=== PATIENT | female | born 1970 | race Caucasian/White ===

== ENCOUNTER 2018-04-19 09:14 | Emergency (ER) | payer OTHER ==
[2018-04-19] MEDS ORDERED: Sodium Chloride 0.9% 1,000 ML ONE (09:49)
[2018-04-19] MEDS ORDERED: Morphine 4 MG/ML Carpuject ONE (09:50)
[2018-04-19] MEDS ORDERED: Ondansetron HCl/PF 4 MG/2 ML Vial ONE (09:50)
[2018-04-19 09:57] LABS: #Basophils 0.1 thou/uL (0.0-0.2); #Eosinphils 0.2 thou/uL (0.0-0.7); #Lymphocytes 2.1 thou/uL (1.20-3.40); #Monocytes 1.1 thou/uL (0.11-0.59); %Basophils 0.8 % (0.0-1.0); %Eosinophils 1.7 % (0.0-10.0); %Lymphocytes 16.7 % (21.0-51.0); %Monocytes 8.8 % (0.0-10.0); Hemoglobin 13.6 g/dL (12.0-16.0); Mean Corpuscular HGB CONC 33.5 g/dL (32.0-36.0); Mean Corpuscular Hemoglobin 30.9 pg (27.0-31.0); Mean Corpuscular Volume 92.2 fl (81.0-99.0); Mean Platelet Volume 10.6 fL (7.4-10.4); Platelet Count 259 thou/uL (130-400); Red Blood Cell (RBC) Count 4.39 mill/uL (4.20-5.40); White Blood Cell (WBC) Count 12.5 thou/uL (4.8-10.8)
[2018-04-19 10:12] LABS: ALT (SGPT) 12 U/L (8-55); AST (SGOT) 14 U/L (5-34); Alkaline Phosphatase 55 U/L (40-150); Anion Gap 14 mmol/L (10-20); BUN (Urea Nitrogen) 9 mg/dL (7.0-18.7); Bilirubin, Total 0.3 mg/dL (0.2-1.2); Calc. Creatinine Clearance 0 mL/min (70-130); Calcium 9.2 mg/dL (7.8-10.44); Chloride 105 mmol/L (98-107); Estimated GFR-MDRD 72; Glucose 100 mg/dL (70-105); Lipase 64 U/L (8-78); Potassium 3.9 mmol/L (3.5-5.1); Sodium 139 mmol/L (136-145)
[2018-04-19 10:17] LABS: Carbon Dioxide 24 mmol/L (22-29)
[2018-04-19 10:21] LABS: Bilirubin Negative (Negative); Blood, Urine Small (Negative); Glucose, Urine (Dipstick) Negative (Negative); Leukocyte Large (Negative); Nitrite Negative (Negative); Protein, Urine (Dipstick) Negative (Neg-Trace); Urobilinogen 0.2 mg/dL (0.2-1.0); pH, Urine 6.5 (5.0-9.0)
[2018-04-19 10:27] LABS: Clarity SL HAZY (Clear)
[2018-04-19 10:29] LABS: Bacteria/HPF Rare-Few HPF (None Seen); RBC/HPF 0-3 HPF (0-3); Squamous Epithelial 0-3 HPF (0-3); Trichomonas/HPF 3+ HPF (None Seen); WBC/HPF 0-3 HPF (0-3)
[2018-04-19 10:30] LABS: Amphetamine Not Detected (NotDetected); Barbiturates Screen Not Detected (NotDetected); Benzodiazepine Screen Detected (NotDetected); Cocaine Metabolite Screen Not Detected (NotDetected); Medtox Control Line Valid? VALID (VALID); Methadone Not Detected (NotDetected); Methamphetamine Not Detected (NotDetected); Opiate Screen Detected (NotDetected); Oxycodone Screen Not Detected (NotDetected); Phencyclidine (PCP) Not Detected (NotDetected); THC/Cannabinoid Screen Detected (NotDetected); Tricyclic Screen Not Detected (NotDetected)
--- NOTE | 2018-04-19 15:46 | RAD ---
CHEST ONE VIEW ABDOMEN TWO VIEWS 04/19/18 HISTORY: Chest and abdomen pain. FINDINGS: Cardiac silhouette magnified by projection. Pulmonary vasculature unremarkable. No confluent air spac e consolidation or evidence of free subdiaphragmatic gas. Gas and stool throughout the colon and rectum. No differential air fluid levels or evidence of free i ntraperitoneal gas. Phleboliths overlie the pelvis. IMPRESSION: No significant abnormalities are demonstrated. POS: [facility]
== END 2018-04-19 11:35 | disposition home or self-care (01) ==
LOC: NAV ERS 09:14
DX: R10.13 Epigastric pain (principal); R11.2 Nausea with vomiting, unspecified; E03.9 Hypothyroidism, unspecified; F31.9 Bipolar disorder, unspecified; F43.10 Post-traumatic stress disorder, unspecified; F17.210 Nicotine dependence, cigarettes, uncomplicated; J44.9 Chronic obstructive pulmonary disease, unspecified; K58.9 Irritable bowel syndrome, unspecified; Z79.899 Other long term (current) drug therapy
CPT/HCPCS: 74022; 80053; 80306; 81003; 81015; 82150; 83690; 84443; 85025; 96361; 96374; 96375; J2270; J2405; J7050

== ENCOUNTER 2018-05-04 12:04 | Emergency (ER) | payer OTHER ==
--- NOTE | 2018-05-04 12:59 | RAD ---
THREE VIEWS OF THE RIGHT ANKLE: COMPARISON: None. HISTORY: Right ankle injury with pain after playing basketball. FINDINGS: Three views right ankle show no evidence of acute fracture or dislocation. Mild lateral soft tissue swelling is seen. No degenerative changes are seen. IMPRESSION: No evidence of acute osseous abnormality. POS: [facility]
[2018-05-04] MEDS ORDERED: traMADol HCl 50 MG TAB ONE (13:10)
== END 2018-05-04 13:55 | disposition home or self-care (01) ==
LOC: NAV ERS 12:04
DX: S93.401A Sprain of unspecified ligament of right ankle, initial encounter (principal); F17.210 Nicotine dependence, cigarettes, uncomplicated; E03.9 Hypothyroidism, unspecified; F31.9 Bipolar disorder, unspecified; K58.9 Irritable bowel syndrome, unspecified; J44.9 Chronic obstructive pulmonary disease, unspecified; F43.10 Post-traumatic stress disorder, unspecified; X50.1XXA Overexertion from prolonged static or awkward postures, initial encounter; Y93.67 Activity, basketball

== ENCOUNTER 2018-06-10 15:18 | Outpatient (CLI) | payer OTHER ==
--- NOTE | 2018-06-10 17:30 | RAD ---
THREE VIEWS OF THE LUMBAR SPINE: 06/10/18 COMPARISON: None. HISTORY: Low back pain. FINDINGS: There is disc space narrowing, degenerative end plate change, anterior osteophyte formation and vacuu m disc formation at the lumbosacral junction. There is facet hypertrophy bilaterally at L5-S1, right greater than left. Five lumbar type vertebral bodies are present with intact pedicles on frontal imag ing. No anterolisthesis or retrolisthesis noted. Mild disc space narrowing with anterior osteophyte n oted at L2-3. IMPRESSION: Degenerative disc disease, most prominent at the L5-S1 level. No acute osseous abnormality. POS: [facility]
== END 2018-06-10 15:19 | disposition home or self-care (01) ==
LOC: NAV RAD 15:18
PROVIDERS: ATTEND Family Medicine
DX: M54.5 Low back pain (principal); M51.37 Other intervertebral disc degeneration, lumbosacral region
CPT/HCPCS: 72100

== ENCOUNTER 2018-10-08 13:32 | Outpatient (CLI) | payer OTHER ==
--- NOTE | 2018-10-08 15:08 | ULT ---
THYROID ULTRASOUND: Date: 10/08/18 HISTORY: Thyroid nodules. FINDINGS: Real-time imaging of the right and left lobes of the thyroid gland were performed. The gland is very heterogeneous without a focal discrete nodule identified. Right lobe measures 2.1 x 2.3 x 3.9 cm. Lef t lobe measures 1.3 x 1.4 x 4.0 cm. IMPRESSION: Diffusely heterogeneous gland. It is difficult to define definite discrete nodules in this gland. POS: [facility]
== END 2018-10-08 13:33 | disposition home or self-care (01) ==
LOC: NAV ULT 13:32
PROVIDERS: ATTEND Family Medicine
DX: E04.1 Nontoxic single thyroid nodule (principal)
CPT/HCPCS: 76536

== ENCOUNTER 2018-11-06 12:43 | Emergency (ER) | payer OTHER ==
[2018-11-06] MEDS ORDERED: Morphine 4 MG/ML VIAL ONE ×2 (12:57→14:53)
[2018-11-06] MEDS ORDERED: Ondansetron PF 4 MG/2 ML Vial ONE (12:57)
[2018-11-06] MEDS ORDERED: Sodium Chloride 0.9% 1,000 ML ONE (12:57)
[2018-11-06 13:24] LABS: ALT (SGPT) 18 U/L (8-55); AST (SGOT) 16 U/L (5-34); Albumin 4.3 g/dL (3.5-5.0); Alkaline Phosphatase 70 U/L (40-150); Anion Gap 16 mmol/L (10-20); BUN (Urea Nitrogen) 11 mg/dL (7.0-18.7); Bilirubin, Total 0.4 mg/dL (0.2-1.2); Calc. Creatinine Clearance 0 mL/min (70-130); Calcium 9.6 mg/dL (7.8-10.44); Carbon Dioxide 20 mmol/L (22-29); Chloride 106 mmol/L (98-107); Estimated GFR-MDRD 86; Globulin 3.2 g/dL (2.4-3.5); Glucose 125 mg/dL (70-105); Lipase 20 U/L (8-78); Potassium 3.6 mmol/L (3.5-5.1); Protein, Total 7.5 g/dL (6.0-8.3); Sodium 138 mmol/L (136-145)
[2018-11-06 13:34] LABS: #Basophils 0.1 thou/uL (0.0-0.2); #Lymphocytes 1.2 thou/uL (1.20-3.40); #Monocytes 0.7 thou/uL (0.11-0.59); #Neutrophils 11.9 thou/uL (1.40-6.50); %Basophils 0.6 % (0.0-1.0); %Eosinophils 0.2 % (0.0-10.0); %Lymphocytes 8.8 % (21.0-51.0); %Neutrophils 85.5 % (42.0-75.0); Hemoglobin 14.3 g/dL (12.0-16.0); Mean Corpuscular HGB CONC 32.9 g/dL (32.0-36.0); Mean Corpuscular Hemoglobin 29.9 pg (27.0-31.0); Mean Corpuscular Volume 90.8 fL (78.0-98.0); Mean Platelet Volume 9.6 fL (7.4-10.4); Platelet Count 288 thou/uL (130-400); RBC Distribution Width 12.5 % (11.5-14.5); Red Blood Cell (RBC) Count 4.78 mill/uL (4.20-5.40); White Blood Cell (WBC) Count 13.9 thou/uL (4.8-10.8)
[2018-11-06 14:07] LABS: Bilirubin Negative (Negative); Blood, Urine Small (Negative); Clarity Slightly Cloudy (Clear); Glucose, Urine (Dipstick) Negative (Negative); Leukocyte Negative (Negative); Nitrite Negative (Negative); Protein, Urine (Dipstick) Negative (Neg-Trace); Urobilinogen 0.2 mg/dL (0.2-1.0)
[2018-11-06 14:18] LABS: Bacteria/HPF Rare-Few HPF (None Seen); WBC/HPF 0-3 HPF (0-3)
--- NOTE | 2018-11-06 15:15 | ULT ---
ABDOMINAL ULTRASOUND: Date: 11/06/18 HISTORY: Upper abdominal pain. FINDINGS: The liver, spleen, gallbladder, kidneys, and visualized portions of the pancreas, aorta, and IVC appe ar normal. The common duct measures 4.0 mm in diameter. No free fluid is seen. IMPRESSION: Normal exam. POS: [facility]
--- NOTE | 2018-11-06 15:29 | RAD ---
2 VIEW ABDOMEN: Date: 11/06/18 CLINICAL HISTORY: Abdominal pain. FINDINGS: Imaged lower lung zones are clear. There is a paucity of bowel gas. Phlebolith formation is seen over lying the pelvis. No free air beneath the hemidiaphragms. Osseous structures intact. IMPRESSION: No acute abnormality identified. POS: [facility]
== END 2018-11-06 16:20 | disposition home or self-care (01) ==
LOC: NAV ERS 12:43
DX: R11.2 Nausea with vomiting, unspecified (principal); R10.10 Upper abdominal pain, unspecified; E03.9 Hypothyroidism, unspecified; J44.9 Chronic obstructive pulmonary disease, unspecified; F31.9 Bipolar disorder, unspecified; F43.10 Post-traumatic stress disorder, unspecified; F17.210 Nicotine dependence, cigarettes, uncomplicated; Z79.899 Other long term (current) drug therapy
CPT/HCPCS: 74019; 76700; 80053; 81003; 81015; 83605; 83690; 84443; 85025; 93005; 94760; 96361; 96374; 96375; 96376; J2270; J2405; J7050

== ENCOUNTER 2021-11-22 20:27 | Emergency (ER) | payer OTHER ==
[2021-11-22] MEDS ORDERED: Ibuprofen 200 MG TAB ONE (22:02)
== END 2021-11-22 22:08 | disposition home or self-care (01) ==
LOC: NAV ERS 20:27
DX: S93.402A Sprain of unspecified ligament of left ankle, initial encounter (principal); S93.401A Sprain of unspecified ligament of right ankle, initial encounter; E03.9 Hypothyroidism, unspecified; J44.9 Chronic obstructive pulmonary disease, unspecified; F17.210 Nicotine dependence, cigarettes, uncomplicated; X50.9XXA Other and unspecified overexertion or strenuous movements or postures, initial encounter